=== PATIENT | male | born 1995 | race Caucasian/White ===

== ENCOUNTER 2016-04-30 14:19 | Emergency (ER) | payer BC ==
[2016-04-30 14:24] VITALS: BP 159/101; PULSE 81; RESP 14; TEMP 97.5; O2SAT 96
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
== END 2016-04-30 15:01 | disposition home or self-care (01) ==
PROC: 2W2EX4Z Dressing of Right Hand using Bandage (ICD-10-PCS; principal; 2016-04-30)
DX: T23.201A Burn of second degree of right hand, unspecified site, initial encounter (principal); T31.0 Burns involving less than 10% of body surface; X18.XXXA Contact with other hot metals, initial encounter; Y93.89 Activity, other specified